=== PATIENT | female | born 1960 | race Caucasian/White ===

== ENCOUNTER 2016-09-18 10:22 | Inpatient (IN) | payer BC ==
--- NOTE | ~2016-09-18 | HP ---
History And Physical [address] [place]. [address] NAME: GONZALEZ TAM : 56 STATUS : ADM IN [facility]#: [id number] AGE: 56 ADM/REG DATE : 09/18/16 MR#: [id number] REPORT SERV DATE: 09/19/16 DICTATED BY: KEVIN MALDONADO DATE: 09/18/16 REPORT STATUS : Draft TRANSCRIBED BY: MODL DATE: 09/18/16 DATE OF ADMISSION: 09/18/2016 REASON FOR ADMISSION: Right second toe neuropathic ulcer with osteomyelitis. HISTORY OF PRESENT ILLNESS: This 56-year-old female has been followed in the wound center with a new onset of neuropathic ulcer of the distal right second toe. She has been treated on a conservative basis with debridement and local wound care and offloading in a total contact cast. She presented today with significant redness, swelling, and undermining of the ulcer with visible bone that was necrotic, it was debrided and excised and sent to Pathology. She has a known history of liver dysfunction from previous alcohol usage in the past. She has no history of any other immunosuppression. She agrees to admission to the hospital and amputation of the toe. PAST MEDICAL HISTORY: Depression, neuropathic ulcers, and end-stage liver disease secondary to alcohol. PAST SURGICAL HISTORY: Right first transmetatarsal amputation secondary to osteomyelitis, cholecystectomy, and exploratory laparoscopy. MEDICATIONS: Please see hospital chart. ALLERGIES: THE PATIENT IS ALLERGIC TO PENICILLIN AND SULFA. SOCIAL HISTORY: She is a recovering alcoholic. She is not . She denies drug usage or tobacco usage. FAMILY HISTORY: Negative for lupus, rheumatoid arthritis, scleroderma. REVIEW OF SYSTEMS: No headache, blurred vision, dizziness, chest pain, shortness of breath, cough, dyspnea on exertion, syncope, palpitations, jaundice, itching, palmar erythema, or acholic stools. PHYSICAL EXAMINATION: GENERAL: Well-developed female, in no apparent distress. NECK: Supple. No adenopathy. CARDIOVASCULAR: Regular rate and rhythm. No murmur. RESPIRATORY: Clear to auscultation. ABDOMEN: Soft, nondistended, nontender. BACK: No CVA tenderness. EXTREMITIES: The patient has a right second toe distal ulcer with redness, swelling, and visible bone that is necrotic. There is no bulla or crepitance. ASSESSMENT: 1. Right second toe neuropathic ulcer with osteomyelitis and cellulitis. 2. Neuropathy. History And Physical [address] [address] NAME: GONZALEZ TAM : 56 STATUS : ADM IN [facility]#: [id number] AGE: 56 ADM/REG DATE : 09/18/16 MR#: [id number] REPORT SERV DATE: 09/19/16 DICTATED BY: KEVIN MALDONADO DATE: 09/18/16 REPORT STATUS : Draft TRANSCRIBED BY: MODCalvin DATE: 09/18/16 3. End-stage liver disease secondary to previous alcohol use. 4. Depression. PLAN: At this time, the patient will be admitted for IV antibiotics and amputation of the right second toe, possible transmetatarsal amputation. She is aware of the risks, benefits, and alternatives including bleeding, infection, poor cosmetic result, chronic pain, need for further surgical intervention and higher-level amputation and wishes to proceed. JOSE EDUARDO/SALVADOR Kevin Maldonado M.D. / [id number] CC: Sadaf House D.O.
--- NOTE | ~2016-09-18 | OP ---
Record Of Operation [facility] [address] [place]. [address] NAME: GONZALEZ TAM : 56 STATUS : ADM IN PAT#: [id number] AGE: 56 ADM/REG DATE : 09/18/16 MR#: [id number] REPORT SERV DATE: 09/19/16 DICTATED BY: KEVIN MALDONADO DATE: 09/19/16 REPORT STATUS : Draft TRANSCRIBED BY: MODL DATE: 09/19/16 DATE OF PROCEDURE: 09/19/2016 PREOPERATIVE DIAGNOSIS: Right second toe amputation. POSTOPERATIVE DIAGNOSIS: Right second toe amputation. ANESTHESIA: General. SURGEON: Kevin Maldonado M.D. STRATEGY DIRECTOR: Enma. COMPLICATIONS: None. DRAINS: None. ESTIMATED BLOOD LOSS: 20 mL. OPERATIVE TECHNIQUE: The patient was brought to the operating room, placed on the table in supine position. She had antibiotics per schedule. She underwent general endotracheal anesthesia, and was prepped and draped in sterile fashion, and a time-out was completed. Local anesthesia was instilled around the base of the right second toe. A racquet incision was made with a 15 blade knife and electrocautery was used to dissect down the level of the base of the toe. The joint capsule was then entered, and the toe was disarticulated and excised completely with electrocautery and scissors, and sent to Pathology. The posterior digital artery was identified and ligated distal to the metatarsal head. The capsule remained intact and without any infection. The wound was then thoroughly irrigated. Subcutaneous tissues were reapproximated using interrupted 3-0 Vicryl sutures followed by interrupted simple 3-0 nylon sutures. AQUACEL Ag and sterile dressing was applied. She tolerated the procedure well and was extubated, and taken to the recovery room in stable condition. All sponge needle counts reported correct. /SALVADOR Kevin Maldonado M.D. / [id number] CC: Sadaf House D.O. Chirag Patel, M.D.
[~2016-09-18 10:22] MED LIST: B COMPLETE PO; CEFAZ500 IM; CEFAZ500 IV; CELEXA20 PO; CO Q-10100 MG PO; COQ10100 MG OR; FOSAMAX70 MG PO; IVIGPOW; KLOR-CON M2020 MEQ PO; L20 PO; L40 PO; L80 PO; LORTAB 5 PO; LYRICA75 PO; MAGOX4 PO; MICRO-K10 MEQ PO; MULTIPLE VIT PO; MULTIVITAMI1 PO; NEUR300 PO; OSTEO BI FLEX PO; OSTEO BI-FLEX1 EACH PO; PR25 PO; PREV15 PO; SAMSCA15 MG PO; SPIRO50 PO; ULTRAM50 PO; VICOPROFEN 7.5/1 TAB PO; VITAMIN A8000 UNIT PO; VITAMIN D31000 UNIT PO; VITAMIN E; VITAMIN E PO; VITE PO; XIFAXAN PO; [UNRECOGNIZED DRUG - OTHER] PO
[2016-09-18 11:35] LABS: INTERNATIONAL NORMAL RATI 1.1 UNITS (-); PROTIME (NOT ORD) 14.2 SEC (12.0-14.5)
[2016-09-18 12:24] LABS: BASOPHILS 0.2 %; BASOPHILS ABSOLUTE 0.01 10/3/uL (0.0-0.16); EOSINOPHILS 1.4 %; EOSINOPHILS ABSOLUTE 0.07 10/3/uL (0.0-0.53); HEMATOCRIT 37.9 % (36.0-48.0); IMMATURE GRANULOCYTES 0.2 %; IMMATURE GRANULOCYTES ABSOLUTE 0.01 10/3/uL (0.0-0.11); MANUAL DIFF NO %; MEAN CORPUS HGB CONC 34.3 g/dL (32.0-36.0); MEAN CORPUSCULAR VOLUME 99.2 fL (80-100); MEAN PLATELET VOLUME 9.5 fL (9.2-13.0); MONOCYTES 9.4 %; MONOCYTES ABSOLUTE 0.47 10/3/uL (0.21-1.20); NEUTROPHILS 70.8 %; NEUTROPHILS ABSOLUTE 3.53 10/3/uL (2.02-8.40); PLATELET COUNT 149 10/3/uL (150-400); RBC DISTRIBUTION WIDTH 13.9 % (12.0-16.0); RED CELL COUNT 3.82 10/6/uL (4.0-5.6)
[2016-09-18 13:10] LABS: BUN (BLOOD UREA NITROGEN) 6 MG/DL (6-23); CALCIUM, SERUM 8.8 MG/DL (8.5-10.4); CHLORIDE, SERUM 107 MMOL/L (96-112); CO2 (CARBON DIOXIDE) 28 MMOL/L (24-34); CREATININE 0.57 MG/DL (0.55-1.02); GFR AFRICAN AMERICAN 118 ML/MIN (>=60); GFR NON AFRICAN AMERICAN 102 ML/MIN (>=60); GLUCOSE, SERUM 124 MG/DL (60-99); POTASSIUM, SERUM 4.1 MMOL/L (3.5-5.3); SODIUM, SERUM 142 MMOL/L (135-148)
[2016-09-18] MEDS ORDERED: NEUR300 PO (15:15)
[2016-09-18] MEDS ORDERED: CELEXA20 PO (15:15)
[2016-09-18] MEDS ORDERED: VITAMIN A PO (15:15)
[2016-09-18] MEDS ORDERED: CENTRUM PO (15:15)
[2016-09-18] MEDS ORDERED: FOSAMAX70 MG PO (15:16)
[2016-09-18] MEDS ORDERED: MILK THISTLE PO (15:16)
[2016-09-18] MEDS ORDERED: VITAMIN D PO (15:16)
[2016-09-18] MEDS ORDERED: VITAMIN E PO (15:16)
[2016-09-18] MEDS ORDERED: MAGOX4 PO (15:17)
[2016-09-18] MEDS ORDERED: GLUCOSAMINEPO PO (15:17)
[2016-09-18] MEDS ORDERED: TURMERIC PO (15:17)
[2016-09-18] MEDS ORDERED: IVIG INF (15:17)
[2016-09-19 06:47] LABS: BASOPHILS 0.6 %; BASOPHILS ABSOLUTE 0.02 10/3/uL (0.0-0.16); EOSINOPHILS 3.3 %; EOSINOPHILS ABSOLUTE 0.11 10/3/uL (0.0-0.53); HEMATOCRIT 36.4 % (36.0-48.0); HEMOGLOBIN 12.5 g/dL (12.0-16.0); LYMPHOCYTES 27.5 %; LYMPHOCYTES ABSOLUTE 0.92 10/3/uL (0.67-4.30); MEAN CORPUS HGB CONC 34.3 g/dL (32.0-36.0); MEAN CORPUSCULAR VOLUME 98.9 fL (80-100); MEAN PLATELET VOLUME 9.2 fL (9.2-13.0); MONOCYTES 10.4 %; MONOCYTES ABSOLUTE 0.35 10/3/uL (0.21-1.20); NEUTROPHILS 58.2 %; NEUTROPHILS ABSOLUTE 1.95 10/3/uL (2.02-8.40); PLATELET COUNT 140 10/3/uL (150-400); RBC DISTRIBUTION WIDTH 13.8 % (12.0-16.0); RED CELL COUNT 3.68 10/6/uL (4.0-5.6); WHITE BLOOD CELLS 3.4 10/3/uL (4.5-10.5)
[2016-09-19 06:48] LABS: MANUAL DIFF NO %
[2016-09-19 07:03] LABS: A/G RATIO 0.7 (0.7-1.9); ALKALINE PHOSPHATASE 185 U/L (45-117); BUN (BLOOD UREA NITROGEN) 5 MG/DL (6-23); CALCIUM, SERUM 8.8 MG/DL (8.5-10.4); CHLORIDE, SERUM 110 MMOL/L (96-112); CO2 (CARBON DIOXIDE) 28 MMOL/L (24-34); CREATININE 0.57 MG/DL (0.55-1.02); GFR AFRICAN AMERICAN 118 ML/MIN (>=60); GFR NON AFRICAN AMERICAN 102 ML/MIN (>=60); GLOBULIN 4.2 G/DL (2.5-4.1); GLUCOSE, SERUM 90 MG/DL (60-99); POTASSIUM, SERUM 4.3 MMOL/L (3.5-5.3); SGOT(AST) 39 U/L (5-40); SGPT(ALT) 22 U/L (5-65); SODIUM, SERUM 144 MMOL/L (135-148); TOTAL BILIRUBIN 0.9 MG/DL (0-1.2); TOTAL PROTEIN 7.2 G/DL (6.0-8.5)
== END 2016-09-20 18:04 | disposition home or self-care (01) | DRG 580 ==
LOC: 5SO 10:22
PROVIDERS: Surgery
PROC: 0Y6R0Z0 Detachment at Right 2nd Toe, Complete, Open Approach (ICD-10-PCS; principal; 2016-09-19 12:30)
DX: L97.519 Non-pressure chronic ulcer of other part of right foot with unspecified severity (principal); M86.671 Other chronic osteomyelitis, right ankle and foot; K72.90 Hepatic failure, unspecified without coma; L03.031 Cellulitis of right toe; F32.9 Major depressive disorder, single episode, unspecified; Z88.2 Allergy status to sulfonamides; Z88.0 Allergy status to penicillin
CPT/HCPCS: 11044; 80048; 80053; 85025; 85610; 87070; 87077; 87186; 87205; 88305; 88311; A9270-GY; J2250; J3010; J3370

== ENCOUNTER 2016-10-06 09:39 | Inpatient (IN) | payer BC ==
--- NOTE | ~2016-10-06 | HP ---
History And Physical [address] [place]. [address] NAME: GONZALEZ TAM : 56 STATUS : ADM IN [facility]#: [id number] AGE: 56 ADM/REG DATE : 10/06/16 MR#: [id number] REPORT SERV DATE: 10/06/16 DICTATED BY: KEVIN MALDONADO DATE: 10/06/16 REPORT STATUS : Draft TRANSCRIBED BY: MODL DATE: 10/06/16 DATE OF ADMISSION: 10/06/2016 REASON FOR ADMISSION: Right 2nd toe amputation wound with cellulitis. HISTORY OF PRESENT ILLNESS: This 56-year-old female was followed in the wound center for a right distal 2nd toe ulcer. She failed conservative therapy and underwent toe amputation. Her incision healed well and then was noted to have progressive swelling and dehiscence of the distal aspect of the incision. On examination today, the patient has erythema and necrotic slough deep into the soft tissue. After discussion with the patient, an attempt of forefoot salvage, we will be admit her to the hospital for IV antibiotics and negative pressure wound therapy. She has a known history of liver cirrhosis and chronic inflammatory demyelinating polyneuropathy, for which she just received IVIG therapy. She is aware of the potential need for further more proximal amputation and agrees to admission. PAST MEDICAL HISTORY: As above with depression. PAST SURGICAL HISTORY: 1. Right 1st toe transmetatarsal amputation and recent 2nd toe amputation. 2. Cholecystectomy and exploratory laparoscopy. MEDICATIONS: Please see hospital chart. ALLERGIES: PENICILLIN AND SULFA. SOCIAL HISTORY: The patient is a recovering alcoholic. She is . She denies alcohol, tobacco, or illicit drug usage. FAMILY HISTORY: Negative for lupus, rheumatoid arthritis, scleroderma, or other autoimmune disease. REVIEW OF SYSTEMS: No headache, blurred vision, dizziness, chest pain, shortness of breath, cough, dyspnea on exertion, syncope, palpitations, jaundice, itching, palmar erythema, acholic stools, swelling. PHYSICAL EXAMINATION: GENERAL: A well-developed female, in no apparent distress. NECK: Supple. No adenopathy. CARDIOVASCULAR: Regular rate and rhythm without murmur. RESPIRATORY: Clear to auscultation without wheezing. ABDOMEN: Soft, nondistended, nontender. No masses. BACK: No CVA tenderness. EXTREMITIES: The patient has a right 2nd toe incision with sutures with redness, swelling, and necrotic slough. There was no bulla or crepitance. History And Physical [address] [place]. [address] NAME: GONZALEZ TAM : 56 STATUS : ADM IN [facility]#: [id number] AGE: 56 ADM/REG DATE : 10/06/16 MR#: [id number] REPORT SERV DATE: 10/06/16 DICTATED BY: KEVIN MALDONADO DATE: 10/06/16 REPORT STATUS : Draft TRANSCRIBED BY: SALVADOR DATE: 10/06/16 ASSESSMENT: 1. Status post right 2nd toe amputation with cellulitis. 2. Liver cirrhosis secondary to alcohol. 3. Chronic inflammatory demyelinating polyneuropathy with monthly IVIG therapy. 4. Depression. PLAN: The patient will be admitted for IV antibiotics, negative pressure wound therapy and attempt for forefoot salvage. She is aware of the risks, benefits, and alternatives including bleeding, infection, poor cosmetic result, and need for higher level of amputation and is in agreement to the current therapy. JOSE EDUARDO/SALVADOR Kevin Maldonado M.D. / [id number] CC: Sadaf House D.O.
--- NOTE | ~2016-10-06 | DS ---
Discharge Summary [facility] [address] [place]. [address] NAME: GONZALEZ TAM : 56 STATUS : DIS IN PAT#: [id number] AGE: 56 ADM/REG DATE : 10/06/16 MR#: [id number] REPORT SERV DATE: 10/20/16 DICTATED BY: KEVIN MALDONADO DATE: 10/19/16 REPORT STATUS : Draft TRANSCRIBED BY: SALVADOR DATE: 10/19/16 Data Collection from hospitalization DISCHARGE DIAGNOSES: 1. Right foot ulcer with cellulitis. 2. Immunosuppression without IVIG for chronic inflammatory demyelinating polyneuropathy. 3. Liver cirrhosis secondary to alcohol. 4. Depression. CONSULTATIONS: None. PROCEDURES PERFORMED: None. MEDICATIONS: Fosamax 70 mg every seven days, Celexa 20 mg at bedtime, Neurontin 300 mg twice a day, glucosamine one tablet every morning, Levaquin 750 mg IV daily, Mag-Ox 800 mg every morning, Centrum tablets one tablet every morning, vitamin A one tablet every morning, vitamin D one tablet every morning, milk thistle one tablet every morning, turmeric one tablet every morning, IVIG one dose infusion every 28 days as instructed, and vancomycin 1 g IV every 12 hours. CONDITION AT DISCHARGE: Stable. DISPOSITION: The patient was discharged home to be followed by home health care on a regular diet with activities as instructed. She would follow up with me on 10/16/2016. HOSPITAL COURSE: This is a 56-year-old female who is followed in the Wound Center for right distal second toe ulcer. She had failed conservative therapy and had undergone toe amputation. Her incision was well healed and she was then noted to have progressive swelling and dehiscence of the distal aspect of the incision. On examination on the day of this admission, she had erythema and necrotic slough deep into the soft tissues. After a discussion with the patient and attempt of forefoot salvage, we would admit her to the hospital for IV antibiotics and negative pressure wound therapy. She does have a history of liver cirrhosis and chronic inflammatory demyelinating polyneuropathy for which she had just received IVIG therapy. She is aware of the potential need for further more proximal amputation. She was admitted to the hospital for further evaluation and treatment. Upon admission, IV antibiotics were started. We were going to begin negative pressure wound therapy and attempt forefoot salvage. The following day, she had no new complaints. The redness in the right foot had decreased. IV antibiotics were continued. On 10/09/2016, she had no complaints of foot pain. The right foot VAC was without leak. Discharge planning was performed. A PICC line was inserted. On 10/11/2016, the patient had improved. There was no foot pain at this time. Discharge instructions were given. Due to her improved and stable condition, she was discharged home to be followed by home health care with the above- stated instructions. Information collected by: Naomi Juárez I submit the above information as my discharge summary. Discharge Summary [id number] [place]. [address] NAME: GONZALEZ TAM : 56 STATUS : DIS IN PAT#: [id number] AGE: 56 ADM/REG DATE : 10/06/16 MR#: [id number] REPORT SERV DATE: 10/20/16 DICTATED BY: KEVIN MALDONADO DATE: 10/19/16 REPORT STATUS : Draft TRANSCRIBED BY: SALVADOR DATE: 10/19/16 TG/SALVADOR Kevin Maldonado M.D. / [id number] CC: Sadaf House D.O.
[~2016-10-06 09:39] MED LIST changes: +CENTRUM PO; +GLUCOSAMINEPO PO; +IVIG INF; +MILK THISTLE PO; +TURMERIC PO; +VITAMIN A PO; +VITAMIN D PO
[2016-10-06] MEDS ORDERED: CELEXA20 PO (10:39)
[2016-10-06] MEDS ORDERED: NEUR300 PO (10:39)
[2016-10-06] MEDS ORDERED: FOSAMAX70 MG PO (10:39)
[2016-10-06] MEDS ORDERED: MAGOX4 PO (10:40)
[2016-10-06] MEDS ORDERED: GLUCOSAMINEPO PO (10:40)
[2016-10-06] MEDS ORDERED: VITAMIN A PO (10:41)
[2016-10-06] MEDS ORDERED: OTC VITAMIN D PO (10:41)
[2016-10-06] MEDS ORDERED: OTC VITAMIN E PO (10:41)
[2016-10-06] MEDS ORDERED: CENTRUM PO (10:41)
[2016-10-06] MEDS ORDERED: MILK THISTLE PO (10:42)
[2016-10-06] MEDS ORDERED: TURMERIC PO (10:42)
[2016-10-06] MEDS ORDERED: IVIG INF (10:43)
[2016-10-06 11:23] LABS: BASOPHILS 0.6 %; BASOPHILS ABSOLUTE 0.02 10/3/uL (0.0-0.16); EOSINOPHILS 4.4 %; EOSINOPHILS ABSOLUTE 0.16 10/3/uL (0.0-0.53); HEMATOCRIT 37.7 % (36.0-48.0); HEMOGLOBIN 12.8 g/dL (12.0-16.0); IMMATURE GRANULOCYTES 0.3 %; IMMATURE GRANULOCYTES ABSOLUTE 0.01 10/3/uL (0.0-0.11); LYMPHOCYTES 21.4 %; LYMPHOCYTES ABSOLUTE 0.77 10/3/uL (0.67-4.30); MEAN CORPUSCULAR HEMOGLOB 32.4 pg (26.0-34.0); MEAN PLATELET VOLUME 9.2 fL (9.2-13.0); MONOCYTES 9.2 %; MONOCYTES ABSOLUTE 0.33 10/3/uL (0.21-1.20); NEUTROPHILS 64.1 %; NEUTROPHILS ABSOLUTE 2.31 10/3/uL (2.02-8.40); PLATELET COUNT 159 10/3/uL (150-400); RBC DISTRIBUTION WIDTH 12.8 % (12.0-16.0); RED CELL COUNT 3.95 10/6/uL (4.0-5.6); WHITE BLOOD CELLS 3.6 10/3/uL (4.5-10.5)
[2016-10-06 11:28] LABS: MANUAL DIFF NO %; MEAN CORPUSCULAR VOLUME 95.4 fL (80-100)
[2016-10-06 11:35] LABS: BUN (BLOOD UREA NITROGEN) 5 MG/DL (6-23); CALCIUM, SERUM 8.9 MG/DL (8.5-10.4); CHLORIDE, SERUM 103 MMOL/L (96-112); CREATININE 0.65 MG/DL (0.55-1.02); GFR AFRICAN AMERICAN 113 ML/MIN (>=60); GFR NON AFRICAN AMERICAN 98 ML/MIN (>=60); GLUCOSE, SERUM 105 MG/DL (60-99); POTASSIUM, SERUM 3.5 MMOL/L (3.5-5.3); SODIUM, SERUM 140 MMOL/L (135-148)
[2016-10-06 11:36] LABS: CO2 (CARBON DIOXIDE) 33 MMOL/L (24-34)
[2016-10-07 06:38] LABS: BASOPHILS 0.5 %; BASOPHILS ABSOLUTE 0.02 10/3/uL (0.0-0.16); EOSINOPHILS 3.1 %; EOSINOPHILS ABSOLUTE 0.13 10/3/uL (0.0-0.53); HEMATOCRIT 36.9 % (36.0-48.0); HEMOGLOBIN 12.2 g/dL (12.0-16.0); LYMPHOCYTES 21.4 %; LYMPHOCYTES ABSOLUTE 0.91 10/3/uL (0.67-4.30); MEAN CORPUS HGB CONC 33.1 g/dL (32.0-36.0); MEAN CORPUSCULAR HEMOGLOB 32.1 pg (26.0-34.0); MEAN CORPUSCULAR VOLUME 97.1 fL (80-100); MEAN PLATELET VOLUME 9.4 fL (9.2-13.0); MONOCYTES 9.9 %; MONOCYTES ABSOLUTE 0.42 10/3/uL (0.21-1.20); NEUTROPHILS 65.1 %; NEUTROPHILS ABSOLUTE 2.78 10/3/uL (2.02-8.40); PLATELET COUNT 146 10/3/uL (150-400); RBC DISTRIBUTION WIDTH 12.9 % (12.0-16.0); WHITE BLOOD CELLS 4.3 10/3/uL (4.5-10.5)
[2016-10-07 06:41] LABS: MANUAL DIFF NO %
[2016-10-07 06:52] LABS: BUN (BLOOD UREA NITROGEN) 8 MG/DL (6-23); CALCIUM, SERUM 8.6 MG/DL (8.5-10.4); CHLORIDE, SERUM 107 MMOL/L (96-112); CO2 (CARBON DIOXIDE) 29 MMOL/L (24-34); GFR AFRICAN AMERICAN 111 ML/MIN (>=60); GFR NON AFRICAN AMERICAN 96 ML/MIN (>=60); GLUCOSE, SERUM 101 MG/DL (60-99); POTASSIUM, SERUM 3.7 MMOL/L (3.5-5.3); SODIUM, SERUM 141 MMOL/L (135-148)
[2016-10-08 07:01] LABS: BASOPHILS 0.3 %; BASOPHILS ABSOLUTE 0.01 10/3/uL (0.0-0.16); EOSINOPHILS 4.9 %; EOSINOPHILS ABSOLUTE 0.16 10/3/uL (0.0-0.53); HEMATOCRIT 36.8 % (36.0-48.0); HEMOGLOBIN 12.5 g/dL (12.0-16.0); LYMPHOCYTES 36.9 %; LYMPHOCYTES ABSOLUTE 1.21 10/3/uL (0.67-4.30); MEAN CORPUSCULAR HEMOGLOB 32.8 pg (26.0-34.0); MEAN CORPUSCULAR VOLUME 96.6 fL (80-100); MEAN PLATELET VOLUME 9.3 fL (9.2-13.0); MONOCYTES 10.7 %; MONOCYTES ABSOLUTE 0.35 10/3/uL (0.21-1.20); NEUTROPHILS 47.2 %; NEUTROPHILS ABSOLUTE 1.55 10/3/uL (2.02-8.40); PLATELET COUNT 135 10/3/uL (150-400); RBC DISTRIBUTION WIDTH 12.9 % (12.0-16.0); RED CELL COUNT 3.81 10/6/uL (4.0-5.6); WHITE BLOOD CELLS 3.3 10/3/uL (4.5-10.5)
[2016-10-08 07:08] LABS: MANUAL DIFF NO %
[2016-10-08 07:13] LABS: BUN (BLOOD UREA NITROGEN) 7 MG/DL (6-23); CALCIUM, SERUM 8.8 MG/DL (8.5-10.4); CHLORIDE, SERUM 106 MMOL/L (96-112); CO2 (CARBON DIOXIDE) 32 MMOL/L (24-34); CREATININE 0.68 MG/DL (0.55-1.02); GFR AFRICAN AMERICAN 112 ML/MIN (>=60); GFR NON AFRICAN AMERICAN 96 ML/MIN (>=60); GLUCOSE, SERUM 97 MG/DL (60-99); POTASSIUM, SERUM 3.4 MMOL/L (3.5-5.3); SODIUM, SERUM 141 MMOL/L (135-148)
[2016-10-10 06:52] LABS: BUN (BLOOD UREA NITROGEN) 9 MG/DL (6-23); CHLORIDE, SERUM 107 MMOL/L (96-112); CO2 (CARBON DIOXIDE) 32 MMOL/L (24-34); CREATININE 0.63 MG/DL (0.55-1.02); GFR AFRICAN AMERICAN 115 ML/MIN (>=60); GFR NON AFRICAN AMERICAN 99 ML/MIN (>=60); GLUCOSE, SERUM 93 MG/DL (60-99); POTASSIUM, SERUM 3.8 MMOL/L (3.5-5.3); SODIUM, SERUM 143 MMOL/L (135-148)
[2016-10-10] MEDS ORDERED: PERCOCET 7.5/321 TAB PO (11:38)
[2016-10-11] MEDS ORDERED: LEVAQUIN750 MG IV (11:59)
[2016-10-11] MEDS ORDERED: VANCO1P IV (12:00)
== END 2016-10-11 13:10 | disposition home health service (06) | DRG 464 ==
LOC: 5SO 09:39
PROVIDERS: Surgery
DX: T87.43 Infection of amputation stump, right lower extremity (principal); G61.81 Chronic inflammatory demyelinating polyneuritis; K70.30 Alcoholic cirrhosis of liver without ascites; L97.519 Non-pressure chronic ulcer of other part of right foot with unspecified severity; Z90.49 Acquired absence of other specified parts of digestive tract; Z98.890 Other specified postprocedural states; Z89.421 Acquired absence of other right toe(s); Z89.411 Acquired absence of right great toe; Z88.0 Allergy status to penicillin; Z88.2 Allergy status to sulfonamides; Z79.899 Other long term (current) drug therapy; F32.9 Major depressive disorder, single episode, unspecified
CPT/HCPCS: 11043; 36569; 80048; 80202; 85025; A9270-GY; C1751; J1956; J3370